=== PATIENT | female | born 2005 | race Caucasian/White ===

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

== ENCOUNTER 2024-10-27 07:17 | Emergency (ER) | payer BC ==
[2024-10-27 07:46] LABS: BASOPHILS ABSOLUTE AUTO 0.08 K/uL (0.00-0.20); BASOPHILS PERCENT AUTO 1.3 % (0.0-2.0); EOSINOPHILS ABSOLUTE AUTO 0.19 K/uL (0.00-0.50); HEMATOCRIT 39.4 % (34.0-46.0); HEMOGLOBIN 13.8 g/dL (11.7-15.5); IMMATURE GRAN ABSOLUTE AUTO 0.04 10^3/uL (0.00-0.04); IMMATURE GRAN PERCENT AUTO 0.6 % (0.0-0.4); LYMPHOCYTES ABSOLUTE AUTO 1.52 K/uL (0.50-3.50); LYMPHOCYTES PERCENT AUTO 24.2 % (10.0-50.0); MEAN CORPUSCULAR HEMOGLOBIN 29.9 pg (28.2-33.3); MEAN CORPUSCULAR VOLUME 85.3 fL (84.0-98.0); MONOCYTES ABSOLUTE AUTO 0.61 K/uL (0.00-1.00); MONOCYTES PERCENT AUTO 9.7 % (2.0-14.0); NEUTROPHILS ABSOLUTE AUTO 3.85 K/uL (1.40-7.00); NEUTROPHILS PERCENT AUTO 61.2 % (45.0-80.0); PLATELET COUNT,PLT 265 K/uL (150-350); RED BLOOD CELL COUNT 4.62 M/uL (3.77-5.09); RED CELL DISTRIBUTION WIDTH 11.7 % (11.2-14.1); WHITE BLOOD CELL COUNT,WBC 6.3 K/uL (4.0-10.2)
[2024-10-27] MEDS: Ondansetron 4 MG/2 ML SDV IVPUSH ONE ×2 (07:49→10:02)
[2024-10-27] MEDS: Sodium Chloride 0.9% 1,000 ML IV ONE (07:56)
[2024-10-27 08:09] LABS: ALBUMIN 4.3 g/dL (3.4-5.0); BILIRUBIN TOTAL 1.5 mg/dL (0.2-1.0); CARBON DIOXIDE,CO2 25.9 mmol/L (21.0-32.0); CREATININE 0.75 mg/dL (0.51-1.17); EST CRCL DRUG DOSING (CG) 103.32 mL/min; POTASSIUM,K 3.3 mmol/L (3.5-5.1); PROTEIN TOTAL,TP 7.6 g/dL (6.4-8.2)
[2024-10-27 08:26] LABS: ANION GAP 13.4 meq/L (7-15)
[2024-10-27 08:28] LABS: APPEARANCE,URINE CLEAR; BILIRUBIN,URINE NEGATIVE (NEGATIVE); COLOR,URINE YELLOW; GLUCOSE,URINE NEGATIVE (NEGATIVE); KETONES,URINE NEGATIVE (NEGATIVE); LEUKOCYTE ESTERASE,URINE NEGATIVE (NEGATIVE); NITRITE,URINE NEGATIVE (NEGATIVE); OCCULT BLOOD,URINE NEGATIVE (NEGATIVE); PROTEIN,URINE NEGATIVE (NEGATIVE); UROBILINOGEN,URINE 0.2 E.U./dL (0.2-1.0)
[2024-10-27] MEDS: Ketorolac 15 MG/ML SDV IVPUSH ONE (08:38)
[2024-10-27 08:40] LABS: BASOPHILS ABSOLUTE AUTO 0.05 K/uL (0.00-0.20); BASOPHILS PERCENT AUTO 0.6 % (0.0-2.0); EOSINOPHILS ABSOLUTE AUTO 0.16 K/uL (0.00-0.50); HEMOGLOBIN 13.5 g/dL (11.7-15.5); IMMATURE GRAN ABSOLUTE AUTO 0.02 10^3/uL (0.00-0.04); IMMATURE GRAN PERCENT AUTO 0.2 % (0.0-0.4); LYMPHOCYTES ABSOLUTE AUTO 1.94 K/uL (0.50-3.50); LYMPHOCYTES PERCENT AUTO 23.9 % (10.0-50.0); MEAN CORPUSCULAR HEMOGLOBIN 29.9 pg (28.2-33.3); MEAN CORPUSCULAR HGB CONC 34.6 g/dL (31.7-36.0); MEAN CORPUSCULAR VOLUME 86.5 fL (84.0-98.0); MONOCYTES ABSOLUTE AUTO 0.73 K/uL (0.00-1.00); NEUTROPHILS ABSOLUTE AUTO 5.22 K/uL (1.40-7.00); NEUTROPHILS PERCENT AUTO 64.3 % (45.0-80.0); PLATELET COUNT,PLT 297 K/uL (150-350); RED BLOOD CELL COUNT 4.51 M/uL (3.77-5.09); RED CELL DISTRIBUTION WIDTH 11.8 % (11.2-14.1); WHITE BLOOD CELL COUNT,WBC 8.1 K/uL (4.0-10.2)
[2024-10-27 08:55] LABS: ALBUMIN 4.3 g/dL (3.4-5.0); ANION GAP 5.8 meq/L (7-15); BILIRUBIN TOTAL 0.6 mg/dL (0.2-1.0); CARBON DIOXIDE,CO2 29.2 mmol/L (21.0-32.0); CREATININE 0.72 mg/dL (0.51-1.17); EST CRCL DRUG DOSING (CG) 107.63 mL/min; POTASSIUM,K 3.6 mmol/L (3.5-5.1); PROTEIN TOTAL,TP 7.6 g/dL (6.4-8.2)
[2024-10-27] MEDS: Potassium Bicarbonate/Cit Ac 20 MEQ Effervescent Tab PO ONE (08:57)
[2024-10-27] MEDS: Sodium Chloride 0.9% 10 ML Syringe FLUSH PRN (10:02)
[2024-10-27] MEDS ORDERED: Potassium Bicarbonate/Cit Ac 20 MEQ Effervescent Tab PO ONE (10:40)
[2024-10-28 14:47] LABS: C.TRACHOMATIS BY TMA Negative (Negative); N.GONORRHOEAE BY TMA Negative (Negative); SOURCE URINE
== END 2024-10-27 10:20 | disposition home or self-care (01) ==
LOC: LL.ED 07:17
DX: A08.4 Viral intestinal infection, unspecified (principal); F17.210 Nicotine dependence, cigarettes, uncomplicated; Z91.030 Bee allergy status; Z88.0 Allergy status to penicillin; Z79.899 Other long term (current) drug therapy
CPT/HCPCS: 36415; 80053; 81003; 81025; 83605; 83690; 85025; 87428-QW; 87491; 87591; 96361; 96374; 96375; 99284; 99284-25; A9270-GY; J1885; J2405; J7030